=== PATIENT | female | born 1935 | race Caucasian/White ===

== ENCOUNTER 2017-10-20 12:56 | Emergency (ER) | payer OTHER, MEDICAID ==
[2017-10-20 13:02] VITALS: Ht 152.4 cm
[2017-10-20 15:39] VITALS: BP 130/56
== END 2017-10-20 15:39 | disposition home or self-care (01) ==
LOC: ED 12:56
DX: S43.004A Unspecified dislocation of right shoulder joint, initial encounter (principal); S00.83XA Contusion of other part of head, initial encounter; E11.9 Type 2 diabetes mellitus without complications; F03.90 Unspecified dementia, unspecified severity, without behavioral disturbance, psychotic disturbance, mood disturbance, and anxiety; Z91.013 Allergy to seafood; Z91.041 Radiographic dye allergy status; Z90.49 Acquired absence of other specified parts of digestive tract; W01.0XXA Fall on same level from slipping, tripping and stumbling without subsequent striking against object, initial encounter; Y93.89 Activity, other specified; Y92.89 Other specified places as the place of occurrence of the external cause; Y99.8 Other external cause status
CPT/HCPCS: J2405; J3490; Q0092